=== PATIENT | female | born 1975 | race African-American/Black ===

== ENCOUNTER 2023-06-04 00:37 | Observation (INO) ==
[2023-06-04 00:59] VITALS: O2SAT 97
--- NOTE | 2023-06-04 01:10 | ED.ABDFE ---
HPI Time Seen Time Seen by Provider: 06/04/23 01:06 PCP Primary Care Physician: NFImani Complaint Doctors Chief Complaint Comments: Abdominal pain and vomiting that started at aound 19:00pm tonight with nausea and vomiting. Chief Complaint:: PT AMBULATORY IN ED WITH C/O ABD PAIN AND VOMITING SINCE AROUND 7PM. COVID-19 Coronavirus risk:travel/contact w/high risk person: No Has patient experienced Coronavirus symptoms: No Reviewed Nurses Notes Review: Yes Source History Provided: Patient Mode of arrival Mode of Arrival: Ambulatory Timing Onset of Chief Complaint: 06/03/23 PMH PMH Past Medical History: No Past Surgical History: Yes Surgical History: Appendectomy Family History History of Family Medical Conditions: Yes Family Medical History: Heart Failure and Hypertension Social History Does patient currently use any type of tobacco product: Yes Have you used tobacco products in the last 12 months: Yes Type of Tobacco Use: Cigarettes Does any household member use tobacco: No Alcohol Use: Occasionally Do you use any recreational Drugs:: No Lives With: Family Lives Where: Home Travel Risk Coronavirus risk:travel/contact w/high risk person: No Has patient experienced Coronavirus symptoms: No Infectious screening In the last 2 months have you had wt loss of >10#?: NO Have you had fever, night sweats or hemotysis?: No Have you traveled outside the country in the last 6 months?: No Isolation: Standard PE Vital Signs Vitals: Vital Signs Temperature 99.1 F Pulse Rate 55 Respiratory Rate 20 Respiratory Rate 20 Respiratory Rate 20 Blood Pressure 156/67 O2 Sat by Pulse Oximetry 97 ROR Labs Reviewed 06/04/23 01:21 06/04/23 01:21 Laboratory: WBC 2.8 X10^3/uL (3.6-10.0) L 06/04/23 01:21 RBC 3.32 X10^6/uL (3.5-5.4) L 06/04/23 01:21 Hgb 5.9 g/dL (12.0-16.0) L* 06/04/23 01:21 Hct 20.3 % (36.0-47.0) L 06/04/23 01:21 MCV 61.2 fL (80.0-100.0) L 06/04/23 01:21 MCH 17.8 pg (27.0-34.0) L 06/04/23 01:21 MCHC 29.1 g/dL (33.0-35.0) L 06/04/23 01:21 RDW 24.1 % (11.6-16.5) H 06/04/23 01:21 Plt Count 143 X10^3/uL (150.0-450.0) L 06/04/23 01:21 Plt Count Comment Decreased (ADEQUATE) A 06/04/23 01:21 MPV 8.1 fL (7.4-11.0) 06/04/23 01:21 Neut % (Auto) 83.1 % (42.0-75.0) H 06/04/23 01:21 Lymph % (Auto) 8.0 % (21.0-51.0) L 06/04/23 01:21 [place] % (Auto) 8.1 % (0.0-13.0) 06/04/23 01:21 Eos % (Auto) 0.2 % (0.9-2.9) L 06/04/23 01:21 Baso % (Auto) 0.6 % (0.2-1.0) 06/04/23 01:21 Neut # (Auto) 2.3 x10^3/uL (2.2-4.8) 06/04/23 01:21 Lymph # (Auto) 0.2 X10^3/uL (1.3-2.9) L 06/04/23 01:21 [place] # (Auto) 0.2 x10^3/uL (0.3-0.8) L 06/04/23 01:21 Eos # (Auto) 0.0 x10^3/uL (0.0-0.2) 06/04/23 01:21 Baso # (Auto) 0.0 X10^3/uL (0.0-0.1) 06/04/23 01:21 Absolute Nucleated RBC 0.2 /100WBC 06/04/23 01:21 Plt Morphology Comment Normal (NORMAL) 06/04/23 01:21 RBC Morphology Abnormal (NORMAL) A 06/04/23 01:21 Hypochromasia 3+ A 06/04/23 01:21 Anisocytosis 3+ A 06/04/23 01:21 Microcytosis 2+ A 06/04/23 01:21 Target Cells Present 06/04/23 01:21 Schistocytes Present 06/04/23 01:21 Absolute Retic 0.0721 10^6/uL 06/04/23 01:21 Percent Retic 2.23 % (0.8-2.2) H 06/04/23 01:21 Sodium 138 mmol/L (136-145) 06/04/23 01:21 Corrected Sodium 138 mmol/L (136-145) 06/04/23 01:21 Potassium 3.5 mmol/L (3.5-5.1) 06/04/23 01:21 Chloride 103 mmol/L (98-107) 06/04/23 01:21 Carbon Dioxide 26.0 mmol/L (21-32) 06/04/23 01:21 BUN 7 mg/dL (7-18) 06/04/23 01:21 Creatinine 0.67 mg/dL (0.55-1.02) 06/04/23 01:21 Est GFR (MDRD) Af Amer > 60 (>60) 06/04/23 01:21 Est GFR (MDRD) Non-Af > 60 (>60) 06/04/23 01:21 Glucose 114 mg/dL (65-99) H 06/04/23 01:21 Calcium 7.6 mg/dL (8.5-10.1) L 06/04/23 01:21 Corrected Calcium TNP 06/04/23 01:21 Iron 14 ug/dL (50-175) L 06/04/23 01:21 Ferritin 5 ng/mL (8-252) L 06/04/23 01:21 Total Bilirubin 0.20 mg/dL (0.2-1.0) 06/04/23 01:21 AST 16 Units/L (15-37) 06/04/23 01:21 ALT 6 Units/L (12-78) L 06/04/23 01:21 Alkaline Phosphatase 51 Units/L (46-116) 06/04/23 01:21 Total Protein 7.1 g/dL (6.4-8.2) 06/04/23 01:21 Albumin 3.6 g/dL (3.4-5.0) 06/04/23 01:21 Globulin 3.5 g/dL (2.5-4.5) 06/04/23 01:21 Albumin/Globulin Ratio 1.0 Ratio (1.1-2.1) L 06/04/23 01:21 Amylase 98 Units/L (25-115) 06/04/23 01:21 Lipase 63 Units/L (73-393) L 06/04/23 01:21 Vitamin B12 175 pg/mL (193-986) L 06/04/23 01:21 Folate 5.9 ng/mL (>8.6) L 06/04/23 01:21 Specimen Type Clean catch urine 06/04/23 03:35 Urine Color Yellow (YELLOW) 06/04/23 03:35 Urine Appearance Clear (CLEAR) 06/04/23 03:35 Urine pH 6.5 (5.0 - 8.0) 06/04/23 03:35 Ur Specific [place] 1.020 (1.000-1.030) 06/04/23 03:35 Urine Protein Negative (NEGATIVE) 06/04/23 03:35 Urine Glucose (UA) Negative (NEGATIVE) 06/04/23 03:35 Urine Ketones 1+ (NEGATIVE) 06/04/23 03:35 Urine Blood 3+ (NEGATIVE) 06/04/23 03:35 Urine Nitrite Negative (NEGATIVE) 06/04/23 03:35 Urine Bilirubin Negative (NEGATIVE) 06/04/23 03:35 Urine Urobilinogen 1+ (NORMAL) 06/04/23 03:35 Ur Leukocyte Esterase Negative (NEGATIVE) 06/04/23 03:35 Urine RBC 3-5 /HPF (0-3) A 06/04/23 03:35 Urine WBC None seen /HPF (0-5) 06/04/23 03:35 Ur Squamous Epith Cells Rare /HPF (NEGATIVE) 06/04/23 03:35 Urine Bacteria Negative /HPF (NEGATIVE) 06/04/23 03:35 Urine Mucus Few /HPF (NEGATIVE) 06/04/23 03:35 Ur Culture Indicated? No/not indicated 06/04/23 03:35 Blood Type O POSITIVE 06/04/23 01:53 Antibody Screen Negative 06/04/23 01:53 Opioid Opioid Risk Tool Age (Igor box if 16-45): No History of Preadolescent Sexual Abuse: No Total: 0 Total Score Risk Category: Low Risk Copyright: Kevin CLEMENTE predicting aberrant behaviors Discharge Plan Discharge Plan Patient Disposition: 01 HOME, SELF-CARE Condition: Stable Prescriptions: No Action [facility] Concerns: Post Hospitalization: new medications and changes needed to prevent readmission or further decline. Pt educated and given instructions on all concerns. Plan of Treatment: Continue with present treatment and follow up plan. Pt is to keep follow up appointment as instructed and take medications as ordered. Orders to Discharge Patient Discharge Orders: Transfer (Routine); Ordered 06/04/23 Ordered By: NITHIN JAIMES Follow ups/Referrals Follow ups/Referrals: [facility],None [Primary Care Provider] - 3 days Instructions Stand Alone Forms: Post Hospital Follow Up Care
[2023-06-04] MEDS ORDERED: TORADOL 60 MG VIAL IM ONE (01:17)
[2023-06-04] MEDS ORDERED: ZOFRAN INJ 4 MG VIAL IM ONE (01:17)
[2023-06-04] MEDS ORDERED: TORADOL 60 MG VIAL ONE (01:23)
[2023-06-04] MEDS ORDERED: ZOFRAN INJ 4 MG VIAL ONE (01:23)
[2023-06-04 01:43] LABS: ALANINE AMINOTRANSFERASE 6 Units/L (12-78); ALBUMIN 3.6 g/dL (3.4-5.0); ALKALINE PHOSPHATASE 51 Units/L (46-116); AMYLASE 98 Units/L (25-115); ASPARTATE AMINO TRANSFERASE 16 Units/L (15-37); BLOOD UREA NITROGEN 7 mg/dL (7-18); CALCIUM 7.6 mg/dL (8.5-10.1); CHLORIDE 103 mmol/L (98-107); COR NA(FOR HYPERGLY) 138 mmol/L (136-145); CREATININE 0.67 mg/dL (0.55-1.02); GLUCOSE 114 mg/dL (65-99); LIPASE 63 Units/L (73-393); POTASSIUM 3.5 mmol/L (3.5-5.1); SODIUM 138 mmol/L (136-145); TOTAL PROTEIN 7.1 g/dL (6.4-8.2); eGFR NON BLACK RACES > 60 (>60)
--- NOTE | 2023-06-04 01:55 | CT ---
HISTORYAbdominal painSTUDYABDOMEN/PELVIS W/O CONCOMPARISONNoneTECHNIQUEMultiple axial images of the abdomen and pelvis were performed without intravenous contrast. Dose reduction techniques including Automated Exposure Control (AEC) and adjustment of mA and kV were utilized.FINDINGSThe lung bases are clear. The abdominal aorta tapers normally. Sensitivity is reduced without contrast. No liver mass. Multiple stones layer within the gallbladder. Gallbladder does not appear inflamed.Normal adrenal glands. Nonobstructed kidneys. Normal spleen and pancreas contours. Normal stomach.In the midline of the low pelvis extending into both adnexae are low-density cyst-like structures which could be related to the ovaries or fallopian tubes spanning several centimeters but are incompletely evaluated with this study.There is a moderate volume of stool in the colon. No sign of appendicitis. The bowel is nonobstructed. No free air. Degenerative disc and endplate changes L5-S1.IMPRESSIONLow-density lobular cyst-like lesions in the bilateral adnexae, crossing the midline. It is unclear if this represents cystic changes of the ovaries or distension of the fallopian tubes or both. Pelvic ultrasound suggested for greater detail.Cholelithiasis.Electronically signed by: Hussein Stephenson (Jun 04, 2023 01:53:33)
[2023-06-04 02:04] LABS: MONOCYTES # (AUTO) 0.2 x10^3/uL (0.3-0.8)
[2023-06-04 02:08] LABS: BASOPHILS % (AUTO) 0.6 % (0.2-1.0); EOSINOPHILS % (AUTO) 0.2 % (0.9-2.9); HEMATOCRIT 20.3 % (36.0-47.0); LYMPHOCYTES # (AUTO) 0.2 X10^3/uL (1.3-2.9); MEAN CORPUSCULAR HEMOGLOBIN 17.8 pg (27.0-34.0); MEAN CORPUSCULAR HGB CONC 29.1 g/dL (33.0-35.0); MEAN CORPUSCULAR VOLUME 61.2 fL (80.0-100.0); MEAN PLATELET VOLUME 8.1 fL (7.4-11.0); MONOCYTES % (AUTO) 8.1 % (0.0-13.0); NEUTROPHILS # (AUTO) 2.3 x10^3/uL (2.2-4.8); NEUTROPHILS % (AUTO) 83.1 % (42.0-75.0); PLATELET COUNT 143 X10^3/uL (150.0-450.0); RED BLOOD COUNT 3.32 X10^6/uL (3.5-5.4); RED CELL DISTRIBUTION WIDTH 24.1 % (11.6-16.5); WHITE BLOOD COUNT 2.8 X10^3/uL (3.6-10.0)
[2023-06-04 02:16] LABS: HEMOGLOBIN 5.9 g/dL (12.0-16.0)
[2023-06-04 02:17] LABS: ANISOCYTOSIS 3+; HYPOCHROMASIA 3+; MICROCYTOSIS 2+; PLATELET MORPHOLOGY COMMENT NORMAL (NORMAL); SCHISTOCYTES PRESENT; TARGET CELLS PRESENT
[2023-06-04] MEDS ORDERED: DEMEROL INJ IVP ONE (02:38)
[2023-06-04 02:41] LABS: RETICULOCYTE % 2.23 % (0.8-2.2)
[2023-06-04] MEDS ORDERED: DEMEROL INJ ONE (02:44)
[2023-06-04] MEDS ORDERED: NS 100 ML IV 100 ML with VENOFER 400 MG IV NR ×2 (03:13)
[2023-06-04 03:43] LABS: BILIRUBIN,URINE NEGATIVE (NEGATIVE); BLOOD/HEMOGLOBIN,URINE 3+ (NEGATIVE); GLUCOSE, URINE NEGATIVE (NEGATIVE); KETONES,URINE 1+ (NEGATIVE); LEUKOCYTE ESTERASE ,URINE NEGATIVE (NEGATIVE); NITRITES,URINE NEGATIVE (NEGATIVE); PH,URINE 6.5 (5.0 - 8.0); PROTEIN,URINE NEGATIVE (NEGATIVE); UROBILINOGEN,URINE 1+ (NORMAL)
[2023-06-04 03:50] LABS: APPEARANCE,URINE CLEAR (CLEAR); BACTERIA,URINE NEGATIVE /HPF (NEGATIVE); COLOR,URINE YELLOW (YELLOW); SQUAMOUS EPITHELIAL CELL,UR RARE /HPF (NEGATIVE)
[2023-06-04] MEDS ORDERED: COMPAZINE INJ IVP ONE (04:08)
[2023-06-04] MEDS ORDERED: COMPAZINE INJ ONE (04:09)
[2023-06-04] MEDS ORDERED: ZITHROMAX INJ 500 MG VIAL IV ONE (04:17)
[2023-06-04] MEDS ORDERED: NS 250 ML IV 250 ML IV ONE (04:17)
[2023-06-04] MEDS ORDERED: ZITHROMAX INJ 500 MG VIAL 500 MG in NS 250 ML IV 250 ML IV SCH (04:42)
[2023-06-04] MEDS: NS 1,000 ML IV 1,000 ML ONE ×2 (04:45→05:32)
[2023-06-04 04:50] VITALS: RESP 18
[2023-06-04] MEDS ORDERED: NS 1,000 ML IV 1,000 ML IV SCH ×2 (05:00→05:24)
[2023-06-04] MEDS ORDERED: MORPHINE SULFATE INJ 2 MG INJ IVP PRN (05:24)
[2023-06-04] MEDS ORDERED: ZOFRAN INJ 4 MG VIAL IVP PRN (05:24)
[2023-06-04] MEDS ORDERED: ZITHROMAX INJ 500 MG VIAL 500 MG in D5W 250 ML IV 250 ML IV SCH (05:24)
[2023-06-04 06:20] VITALS: BMI 29.2
[2023-06-04] MEDS ORDERED: CONSULT PHARMACY - POTASSIUM & MAGNESIUM XX SCH (08:00)
[2023-06-04] MEDS ORDERED: VIBRAMYCIN 100 MG in D5W 250 ML IV 250 ML IV SCH (09:00)
[2023-06-04] MEDS ORDERED: K-DUR TAB 20 MEQ PO ONE (09:00)
[2023-06-04 10:59] VITALS: BP 143/65; PULSE 50; TEMP 97.9
[2023-06-04] MEDS ORDERED: LINZESS PO ONE ×3 (12:23→12:49)
[2023-06-04] MEDS ORDERED: VITAMIN B-12 INJ IM ONE (12:37)
[2023-06-04] MEDS ORDERED: VITAMIN B-12 INJ ONE (12:49)
[2023-06-04] MEDS ORDERED: COLACE CAP 100 MG PO SCH (21:00)
[2023-06-05] MEDS ORDERED: ZITHROMAX INJ 500 MG VIAL 500 MG in D5W 250 ML IV 250 ML IV SCH (05:00)
[2023-06-05] MEDS ORDERED: LINZESS PO SCH (09:00)
== END 2023-06-04 13:15 | disposition home or self-care (01) ==
LOC: ER 00:38 → MED/SURG 00:38
PROVIDERS: ADMIT Obstetrics & Gynecology Obstetrics; ATTEND Obstetrics & Gynecology Obstetrics
DX: K80.20 Calculus of gallbladder without cholecystitis without obstruction; N92.1 Excessive and frequent menstruation with irregular cycle; R10.84 Generalized abdominal pain; R11.2 Nausea with vomiting, unspecified; K59.09 Other constipation; D50.8 Other iron deficiency anemias